=== PATIENT | male | born 1985 | race Caucasian/White ===

== ENCOUNTER → 2016-10-21 | Outpatient (CLI) | payer SELFPAY ==
[~2016-10-21] MED LIST: CEPHALEXIN500 M1 PO; NORCO 325 MG-7.1 TAB PO; SEPTRA 400 MG-1 TAB PO
== END ==
LOC: COL.RAD 07:24
DX: R10.11 Right upper quadrant pain (principal); R11.0 Nausea

== ENCOUNTER 2018-05-11 09:31 | Emergency (ER) | payer SELFPAY ==
[~2018-05-11] VITALS: Ht 182.9 cm; Wt 93.2 kg
[2018-05-11] MEDS ORDERED: FLEXERIL 1010 MG/TAB PO (10:38)
[2018-05-11 10:57] VITALS: BP 137/88; PULSE 70; TEMP 97.2
== END 2018-05-11 11:01 | disposition home or self-care (01) ==
LOC: COL.ER 09:31
DX: S01.01XA Laceration without foreign body of scalp, initial encounter (principal); S06.0X9A Concussion with loss of consciousness of unspecified duration, initial encounter; F17.210 Nicotine dependence, cigarettes, uncomplicated; Z23 Encounter for immunization; W00.0XXA Fall on same level due to ice and snow, initial encounter; Y92.009 Unspecified place in unspecified non-institutional (private) residence as the place of occurrence of the external cause

== ENCOUNTER → 2018-05-19 | Emergency (ER) | payer SELFPAY ==
[~2018-05-19] MED LIST changes: +FLEXERIL 1010 MG/TAB PO
[2018-05-19 13:20] VITALS: BP 123/78; PULSE 66; TEMP 97.9
== END ==
LOC: COL.ER 13:09
DX: S01.01XD Laceration without foreign body of scalp, subsequent encounter (principal); X58.XXXD Exposure to other specified factors, subsequent encounter